=== PATIENT | female | born 1990 | race Caucasian/White ===

== ENCOUNTER → 2024-06-29 | Outpatient (CLI) | payer BC ==
--- NOTE | 2024-06-29 11:01 | MM ---
Reason for Exam: Clinical finding. Baseline mammogram. Indicated Problems: Lump or thickening of the right side (size 10) for 1 Month(s). Patient History: Menarche at age 11. Patient has no children. Last menstrual period: 06/16/2024 Prior Study Comparison: Patient's first Mammogram. Tissue Density: The breasts are extremely dense, which lowers the sensitivity of mammography. Findings: Analyzed By CAD. Well-circumscribed 20 x 16 mm mass corresponding to palpable marker Left breast no evidence for suspicious mass, distortion or suspicious calcifications. Overall Assessment: Incomplete: need additional imaging evaluation, BI-RAD 0 Management: Diagnostic Breast Ultrasound of the right breast. Results were given to the patient verbally at the time of exam. Patient should continue monthly self-breast exams. A clinical breast exam by your physician is recommended on an annual basis. This exam should not preclude additional follow-up of suspicious palpable abnormalities. Note on Leah scores and lifetime risk: 1. A Leah score greater than 3% is considered moderate risk. If this is the case, consider specialist referral to assess eligibility for a risk reducing agent. 2. If overall lifetime risk for the development of breast cancer is 20% or higher, the patient may qualify for future screening with alternating mammogram and breast MRI. [facility], , 06/29/2024 10:59 AM. Electronically signed and approved by: Preston Dubois DO
--- NOTE | 2024-06-29 11:18 | USB ---
Reason for Exam: Clinical finding. Patient History: Menarche at age 11. Patient has no children. Technique: Method: Targeted. Findings: The area of palpable concern of the right breast, the axilla of the right breast and the retroareolar of the right breast were scanned. Electronically signed and approved by: Preston Dubois DO
== END | disposition home or self-care (01) ==
LOC: RADMAMWWP 10:33
PROVIDERS: ATTEND Obstetrics & Gynecology
DX: R92.343 Mammographic extreme density, bilateral breasts (principal); N63.10 Unspecified lump in the right breast, unspecified quadrant
CPT/HCPCS: 77062; 77066